=== PATIENT | female | born 1985 | race Caucasian/White ===

== ENCOUNTER 2018-07-10 19:14 | Emergency (ER) | payer MEDICAID ==
--- NOTE | 2018-07-10 20:06 | ED Physician Documentation ---
PD HPI HEADACHE - Stated complaint Stated Complaint: SOOD - Chief complaint Chief Complaint: Heent - History obtained from History obtained from: Patient - History of Present Illness Timing - onset: Today (at 12pm developed bilateral retroorbital headache. Has H/O migraines. No fevers/chills. Feels like her usual migraine but has more neck pain with it. 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 : None, Other HEENT: None Psych: None Musculoskeletal: None Derm: None Other Past Medical History: chronic kidney infections - Past Surgical History Past Surgical History: Yes /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: section, Tubal ligation, Other - Present Medications Home Medications: Ambulatory Orders Medication Instructions Recorded Confirmed FLUoxetine [PROzac] 10 mg PO DAILY 07/19/12 07/25/13 Cyclobenzaprine [Flexeril] 10 mg PO TID 07/25/13 07/25/13 HYDROcod/ACETAM 5/325 [Vicodin 1 - 2 ea PO Q6H PRN #20 tablet 07/25/13 5/325] Promethazine [Phenergan] 25 mg PO Q6H PRN #20 tab 07/25/13 Sumatriptan Succinate [Imitrex] 50 mg PO ONCE PRN #5 tablet 07/25/13 SUMAtriptan [Imitrex] 25 mg PO BID PRN #10 tablet 07/10/18 - Allergies Allergies/Adverse Reactions: Allergies Allergy/AdvReac Type Severity Reaction Status Date / Time Penicillins Allergy Severe Respiratory Verified 07/10/18 19:22 Latex, Natural Rubber Allergy Intermediate Rash Verified 07/10/18 19:22 castor oil [[place] Oil] Allergy Rash Verified 07/10/18 19:22 - Social History Does the pt smoke?: No Smoking Status: Never smoker Does the pt drink ETOH?: No Does the pt have substance abuse?: No Substance Use and Type: Marijuana - Immunizations Immunizations are current?: Yes - POLST Patient has POLST: No PD ED PE NORMAL - Vitals Vital signs reviewed: Yes - General General: Alert and oriented X 3, No acute distress, Other (uncomfortable and photophobic) - HEENT HEENT: PERRL, EOMI, Ears normal - Neck Neck: Supple, no meningeal sign, No bony TTP - Back Back: Other (R CVAT) - Neuro Neuro: Alert and oriented X 3, Normal speech - Psych Psych: Normal mood, Normal affect Results - Vitals Vitals: Vital Signs - 24 hr 07/10/18 07/10/18 19:18 23:12 Temperature 37.2 C 36.2 C L Heart Rate 78 79 Respiratory 14 18 Rate Blood Pressure 121/81 H 105/61 O2 Saturation 100 98 Oxygen O2 Source Room air - Labs Labs: Laboratory Tests 07/10/18 07/10/18 20:58 21:18 Sodium 138 Potassium 3.6 Chloride 101 Carbon Dioxide 28 Anion Gap 9.0 BUN 11 Creatinine 0.6 Estimated GFR (MDRD) 115 Glucose 105 H Calcium 8.9 Urine Color YELLOW Urine Clarity HAZY Urine pH 8.0 H Ur Specific [place] 1.015 Urine Protein TRACE Urine Glucose (UA) NEGATIVE Urine Ketones 40 H Urine Occult Blood NEGATIVE Urine Nitrite NEGATIVE Urine Bilirubin NEGATIVE Urine Urobilinogen 0.2 (NORMAL) Ur Leukocyte Esterase NEGATIVE Urine RBC None Seen Urine WBC 0-3 Ur Squamous Epith Cells MANY Squamous H Urine Bacteria Rare Urine Mucus Moderate Strands Ur Microscopic Review INDICATED Urine Culture Comments NOT INDICATED Urine HCG, Qual NEGATIVE - Rads (name of study) CT KUB Radiology: EMP read contemporaneously (NAD) PD MEDICAL DECISION MAKING - ED course ED course: 33-year-old woman presents with migraine headache but also some urinary complaints. She specifically wanted a CAT scan to evaluate her kidneys, she says she was at an ER at another facility 2 weeks ago and was told she needed this. I discussed the risks of this, but she wants to go ahead with it. There were no acute findings. Her migraine was treated with IV medications with relief. Departure - Departure Disposition: 01 Home, Self Care Clinical Impression: Migraine, Flank pain Condition: Good Record reviewed to determine appropriate education?: Yes Instructions: ED Headache Migraine Prescriptions: SUMAtriptan [Imitrex] 25 mg PO BID PRN #10 tablet PRN Reason: Headache Comments: Your CAT scan is normal. There is no evidence of kidney problem or stone. Call your doctor to arrange a follow-up appointment, make the next available appointment. In the interim, return anytime if worse or if new symptoms develop. Discharge Date/Time: 07/10/18 23:13
[2018-07-10] MEDS ORDERED: ONDANSETRON ODT 4 MG TABLET TL STA (20:11)
[2018-07-10] MEDS ORDERED: SUMAtriptan 6 MG/0.5 ML VIAL SUBQ STA (20:11)
[2018-07-10] MEDS ORDERED: diphenhydrAMINE INJ 50 MG/ML VIAL IVP STA (20:51)
[2018-07-10] MEDS ORDERED: METOCLOPRAMIDE 10 MG/2 ML VIAL IVP STA (20:51)
[2018-07-10] MEDS ORDERED: SODIUM CHLORIDE 0.9% 1,000 ML IV ONE (20:54)
[2018-07-10 21:20] LABS: BILIRUBIN,URINE NEGATIVE (NEGATIVE); GLUCOSE, URINE (UA) NEGATIVE (NEGATIVE); KETONES,URINE (UA) 40 mg/dL (NEGATIVE); LEUKOCYTE ESTERASE, URINE NEGATIVE (NEGATIVE); NITRITE,URINE NEGATIVE (NEGATIVE); OCCULT BLOOD,URINE NEGATIVE (NEGATIVE); PROTEIN,URINE TRACE mg/dL (NEGATIVE); UROBILINOGEN,URINE 0.2 (NORMAL) E.U./dL (NORMAL)
[2018-07-10 21:23] LABS: CLARITY,URINE HAZY (CLEAR); HCG UR QUAL NEGATIVE
[2018-07-10 21:29] LABS: BACTERIA,URINE Rare /HPF (None Seen); MUCUS,URINE Moderate Strands; RBC,URINE None Seen /HPF (0-5); SQUAMOUS EPITHELIAL CELL,UR MANY Squamous (<= Few)
[2018-07-10 21:32] LABS: CALCIUM 8.9 mg/dL (8.5-10.3); CREATININE 0.6 mg/dL (0.4-1.0)
--- NOTE | 2018-07-10 22:37 | CT Report ---
Reason: flank pain Procedure Date: 07/10/2018 Accession Number: [id number] / [id number] Procedure: CT - Abdomen/Pelvis WO CPT Code: FULL RESULT: EXAM: CT ABDOMEN AND PELVIS (CT KUB) EXAM DATE: 07/10/2018 10:14 PM. CLINICAL HISTORY: Flank pain. COMPARISONS: None. TECHNIQUE: Routine axial helical CT imaging was performed through the abdomen and pelvis without IV contrast. Reconstructions: Coronal and sagittal. In accordance with CT protocol optimization, one or more of the following dose reduction techniques were utilized for this exam: automated exposure control, adjustment of mA and/or KV based on patient size, or use of iterative reconstructive technique. FINDINGS: Lung Bases: Unremarkable. Right Kidney/Ureter: No stones, hydronephrosis, or hydroureter. No perinephric fat stranding. Left Kidney/Ureter: No stones, hydronephrosis, or hydroureter. No perinephric fat stranding. Other Solid Organs: Noncontrast images of the solid organs are grossly unremarkable. Gallbladder/Bile Ducts: Unremarkable. Peritoneal Cavity: No free fluid, free air or hiren adenopathy. Bowel is grossly unremarkable. Normal appendix. Pelvic Organs: No bladder stones or wall thickening. Noncontrast images of the visualized pelvic organs are unremarkable. Vasculature: Unremarkable. Other: None. IMPRESSION: No urinary tract stones or obstruction. No evident etiology for patient's flank pain. RADIA
[2018-07-10 23:13] VITALS: BP 105/61
== END 2018-07-10 23:13 | disposition home or self-care (01) ==
LOC: ED 19:14
DX: G43.909 Migraine, unspecified, not intractable, without status migrainosus (principal); R10.9 Unspecified abdominal pain; R35.0 Frequency of micturition
CPT/HCPCS: 36415; 74176; 80048; 81001; 81025; 96372; 96374; 99283; J1200; J2765; Q0162; 81003; 87086

== ENCOUNTER 2018-08-24 13:46 | Emergency (ER) | payer MEDICAID ==
[2018-08-24] MEDS ORDERED: LIDOCAINE 2%-EPI 1:100000 20 ML MDV SUBQ STA (14:38)
--- NOTE | 2018-08-24 14:40 | ED Physician Documentation ---
History of Present Illness - Stated complaint Stated Complaint: LEG SWELLING - Chief complaint Chief Complaint: General - History obtained from History obtained from: Patient - History of Present Illness Timing: How many days ago (4-5) Pain level max: 3 Pain level now: 3 - Additonal information Additional information: 33-year-old female presents to the emergency department with redness and swelling to the left buttock for the past 4 to 5 days. Seen at an urgent care in [place], started on Bactrim. States she has not improved. She states that they did take a wound culture at that time. No fevers. She states that the redness is increasing in size. Nothing makes it better or worse. She is allergic to penicillin. 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: section, Tubal ligation, Other - Present Medications Home Medications: Ambulatory Orders Medication Instructions Recorded Confirmed FLUoxetine [PROzac] 10 mg PO DAILY 07/19/12 07/25/13 Cyclobenzaprine [Flexeril] 10 mg PO TID 07/25/13 07/25/13 HYDROcod/ACETAM 5/325 [Vicodin 1 - 2 ea PO Q6H PRN #20 tablet 07/25/13 5/325] Promethazine [Phenergan] 25 mg PO Q6H PRN #20 tab 07/25/13 Sumatriptan Succinate [Imitrex] 50 mg PO ONCE PRN #5 tablet 07/25/13 SUMAtriptan [Imitrex] 25 mg PO BID PRN #10 tablet 07/10/18 Clindamycin HCl [Clindamycin 300MG 300 mg PO Q6H #40 capsule 08/24/18 CAP] Fluconazole [Diflucan] 150 mg PO ONCE #1 tablet 08/24/18 - Allergies Allergies/Adverse Reactions: Allergies Allergy/AdvReac Type Severity Reaction Status Date / Time Penicillins Allergy Severe Anaphylaxis Verified 08/24/18 14:23 Latex, Natural Rubber Allergy Intermediate Rash Verified 08/24/18 14:23 amoxicillin Allergy Anaphylaxis Verified 08/24/18 14:23 castor oil [[place] Oil] Allergy Rash Verified 08/24/18 14:23 - Social History Does the pt smoke?: No Smoking Status: Never smoker Does the pt drink ETOH?: No Does the pt have substance abuse?: No - Immunizations Immunizations are current?: Yes - POLST Patient has POLST: No PD ED PE NORMAL - Vitals Vital signs reviewed: Yes - General General: Alert and oriented X 3, No acute distress - HEENT HEENT: Moist mucous membranes - Neck Neck: Supple, no meningeal sign - Cardiac Cardiac: RRR - Respiratory Respiratory: No respiratory distress, Clear bilaterally - Derm Derm: Warm and dry - Extremities Extremities: Other (L buttock 6x6cm erythema, small pustule. NVI) - Neuro Neuro: Alert and oriented X 3 - Psych Psych: Normal mood, Normal affect Results - Vitals Vitals: Vital Signs - 24 hr 08/24/18 08/24/18 13:51 15:16 Temperature 36.6 C 36.3 C L Heart Rate 92 76 Respiratory 14 12 Rate Blood Pressure 113/74 118/71 O2 Saturation 100 98 Oxygen O2 Source Room air Procedures - Abscess I&D (location) L buttock Preparation: Confirmed with ultrasound, Lidocaine 2 %, With epi Incision: Needle aspiration Other: Pt tolerated well, Dressing applied, Antibiotic prescribed PD MEDICAL DECISION MAKING - ED course Complexity details: considered differential, d/w patient ED course: 33-year-old female with a small abscess to the buttock but has significant surrounding cellulitis. Will change to clindamycin. Very small abscess on ultrasound, needle aspiration performed. Patient counseled regarding signs and symptoms for which I believe and urgent re-evaluation would be necessary. Patient with good understanding of and agreement to plan and is comfortable going home at this time This document was made in part using voice recognition software. While efforts are made to proofread this document, sound alike and grammatical errors may occur. Departure - Departure Disposition: 01 Home, Self Care Clinical Impression: Abscess Condition: Good Instructions: ED Abscess IandD Follow-Up: your,doctor in 3 days for wound check [Other] Prescriptions: Clindamycin HCl [Clindamycin 300MG CAP] 300 mg PO Q6H #40 capsule Fluconazole [Diflucan] 150 mg PO ONCE #1 tablet Comments: Take all antibiotics until gone. Return if you worsen. You can stop the other antibiotics. Follow-up with your doctor in 2 to 3 days for wound check. Warm water will help this continue to drain as well. Discharge Date/Time: 08/24/18 15:22
[2018-08-24 15:17] VITALS: BP 118/71
== END 2018-08-24 15:22 | disposition home or self-care (01) ==
LOC: ED 13:46
DX: L02.31 Cutaneous abscess of buttock (principal); L03.317 Cellulitis of buttock; Z88.0 Allergy status to penicillin
CPT/HCPCS: 10160; 99283

== ENCOUNTER 2019-08-08 13:56 | Emergency (ER) | payer MEDICAID ==
[2019-08-08] MEDS ORDERED: KETOROLAC 60 MG/2 ML VIAL IM STA (14:42)
[2019-08-08] MEDS ORDERED: CHERRY SYRUP 10 ML UDC PO ONE (14:43)
[2019-08-08] MEDS ORDERED: DEXAMETHASONE 10 MG/ML VIAL PO STA (14:43)
--- NOTE | 2019-08-08 14:45 | ED Physician Documentation ---
History of Present Illness - Stated complaint Stated Complaint: NECK PX/DIZZY - Chief complaint Chief Complaint: Neuro - History obtained from History obtained from: Patient - History of Present Illness Timing: Today - Additonal information Additional information: 34-year-old female got up this morning to go to work found herself to have some lightheadedness and dizziness. On her way to work she suddenly had the onset of pain in the left side of her neck right at the base of her skull and this pain radiated into her jaw and shoulder. She has had similar pains on her other side with the onset of migraine. She does have a headache not not like what she usually has with a migraine. She did get nauseated associated with the pain. She was symptomatic enough she had to call off work. Review of Systems Constitutional: denies: Fever Eyes: denies: Decreased vision Ears: reports: Ear pain, Tinnitus/ringing Nose: denies: Rhinorrhea / runny nose, Congestion Throat: reports: Dental pain / toothache. denies: Sore throat Cardiac: denies: Chest pain / pressure, Palpitations Respiratory: denies: Dyspnea, Cough GI: reports: Nausea. denies: Abdominal Pain, Vomiting : denies: Dysuria, Frequency Skin: denies: Rash Musculoskeletal: reports: Neck pain. 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, Tubal ligation, Other - Present Medications Home Medications: Ambulatory Orders Medication Instructions Recorded Confirmed FLUoxetine [PROzac] 10 mg PO DAILY 07/19/12 07/25/13 Cyclobenzaprine [Flexeril] 10 mg PO TID 07/25/13 07/25/13 HYDROcod/ACETAM 5/325 [Vicodin 1 - 2 ea PO Q6H PRN #20 tablet 07/25/13 5/325] Promethazine [Phenergan] 25 mg PO Q6H PRN #20 tab 07/25/13 Sumatriptan Succinate [Imitrex] 50 mg PO ONCE PRN #5 tablet 07/25/13 SUMAtriptan [Imitrex] 25 mg PO BID PRN #10 tablet 07/10/18 Clindamycin HCl [Clindamycin 300MG 300 mg PO Q6H #40 capsule 08/24/18 CAP] Fluconazole [Diflucan] 150 mg PO ONCE #1 tablet 08/24/18 Cyclobenzaprine [Flexeril] 10 mg PO TID PRN #20 tablet 08/08/19 Hydrocodone/Acetaminophen 1 - 2 each PO Q6H PRN #14 tablet 08/08/19 [Hydrocodon-Acetaminophen 5-325] - Allergies Allergies/Adverse Reactions: Allergies Allergy/AdvReac Type Severity Reaction Status Date / Time Penicillins Allergy Severe Anaphylaxis Verified 08/08/19 14:10 Latex, Natural Rubber Allergy Intermediate Rash Verified 08/08/19 14:10 amoxicillin Allergy Anaphylaxis Verified 08/08/19 14:10 castor oil [[place] Oil] Allergy Rash Verified 08/08/19 14:10 - Social History Does the pt smoke?: No Smoking Status: Never smoker Does the pt drink ETOH?: No Does the pt have substance abuse?: No - Immunizations Immunizations are current?: Yes - POLST Patient has POLST: No PD ED PE NORMAL - Vitals Vital signs reviewed: Yes (Hypertensive) - General General: Alert and oriented X 3, No acute distress, Well developed/nourished - HEENT HEENT: Atraumatic, PERRL, EOMI, Ears normal, Moist mucous membranes, Pharynx benign, Dentition benign - Neck Neck: Supple, no meningeal sign, No bony TTP, Other (There is point tenderness to the trapezius at the insertion to the occiput on the left side. No tenderness over the carotid or vertebral arteries.) - Cardiac Cardiac: RRR, No murmur - Respiratory Respiratory: No respiratory distress, Clear bilaterally - Abdomen Abdomen: Soft, Non tender - Derm Derm: Normal color, Warm and dry, No rash - Extremities Extremities: No deformity, No edema - Neuro Neuro: Alert and oriented X 3, racing secretary 2-12 intact, No motor deficit, No sensory deficit, Normal speech Eye Opening: Spontaneous Motor: Obeys Commands Verbal: Oriented GCS Score: 15 - Psych Psych: Normal mood, Normal affect Results - Vitals Vitals: Vital Signs - 24 hr 08/08/19 08/08/19 14:04 16:38 Temperature 98.6 C H Heart Rate 85 71 Respiratory 14 16 Rate Blood Pressure 133/95 H 129/88 H O2 Saturation 100 100 Oxygen O2 Source Room air - Labs Labs: Laboratory Tests 08/08/19 08/08/19 15:25 15:25 WBC 4.1 L RBC 4.91 Hgb 11.3 L Hct 36.3 L MCV 73.9 L MCH 23.0 L MCHC 31.1 L RDW 15.7 H Plt Count 285 MPV 9.1 Neut # (Auto) 2.2 Lymph # (Auto) 1.5 White # (Auto) 0.4 Eos # (Auto) 0.0 Baso # (Auto) 0.0 Absolute Nucleated RBC 0.00 Nucleated RBC % 0.0 Sodium 137 Potassium 3.3 L Chloride 101 Carbon Dioxide 29 Anion Gap 7.0 BUN 7 Creatinine 0.6 Estimated GFR (MDRD) 114 Glucose 101 H Calcium 8.9 Total Bilirubin 0.5 AST 19 ALT 16 Alkaline Phosphatase 40 L Total Protein 6.9 Albumin 4.0 Globulin 2.9 Albumin/Globulin Ratio 1.4 Lipase 35 - Rads (name of study) cta neck Radiology: Prelim report reviewed (Impression: Negative for dissection. No hemodynamically significant stenosis is detected. A 9 mm rim calcified lesion can be seen involving the left thyroid. If clinically appropriate, please consider a dedicated thyroid ultrasound for further evaluation.), EMP read indepedently, See rad report Procedures - IVC sono (time) 1440 Bedside IVC sono: IVC measures (cm) (0.78), IVC collapsed c insp (cm) (complete), Dehydration (est >2 liter deficit) PD MEDICAL DECISION MAKING - ED course Complexity details: reviewed old records, reviewed results, re-evaluated patient, considered differential, d/w patient ED course: 34-year-old female with left-sided neck pain and lightheadedness and dizziness appears to have specific tenderness to the trapezius at the insertion to the occiput. In addition she is found to be significantly dehydrated on interrogation the inferior vena cava. I did consider vertebral artery dissection in the differential but the patient had alternative diagnoses to account for her symptoms. 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 I have shared my findings with the patient and we have provided IM Toradol and dexamethasone for treatment and the patient will orally hydrate. I went in to discuss all of these findings with the patient and she is concerned about the specific change that she is experienced and a sensation of a grinding noise that she hears from her neck. For further evaluation a CTA of the neck was performed which demonstrated a thyroid nodule. The posterior circulation was intact without evidence of dissection. The occipital condyles appear to articulate with C1 normally. The results are discussed with the patient including the need for further imaging of the thyroid. Her mother has recently had this and she is familiar with the process and will follow up with her primary Departure - Departure Disposition: Home, Self Care Clinical Impression: Dehydration, Occipital neuralgia of left side Condition: Stable Instructions: ED Dehydration, ED Headache Tension Follow-Up: Vivian Hassan ARNP [Primary Care Provider] - Prescriptions: Cyclobenzaprine [Flexeril] 10 mg PO TID PRN #20 tablet PRN Reason: Spasms Hydrocodone/Acetaminophen [Hydrocodon-Acetaminophen 5-325] 1 - 2 each PO Q6H PRN #14 tablet PRN Reason: pain Comments: Today you were found to be significantly dehydrated and the recommendation is to drink an additional 2 quarts from what you were normal as today and drink an additional quart tomorrow as well. Forms: Activity restrictions
[2019-08-08] MEDS ORDERED: SODIUM CHLORIDE 0.9% 1,000 ML IV STA (15:11)
[2019-08-08 15:34] LABS: BASOPHILS % (AUTO) 0.7 %; EOSINOPHILS % (AUTO) 0.7 %; HGB - HEMOGLOBIN 11.3 g/dL (12.0-16.0); LYMPHOCYTES # (AUTO) 1.5 10^3/uL (1.5-3.5); LYMPHOCYTES % (AUTO) 35.3 %; MEAN CORPUSCULAR HGB CONC 31.1 g/dL (32.0-36.0); MEAN CORPUSCULAR VOLUME 73.9 fL (81.0-99.0); MEAN PLATELET VOLUME 9.1 fL (7.9-10.8); MONOCYTES # (AUTO) 0.4 10^3/uL (0.0-1.0); MONOCYTES % (AUTO) 9.5 %; NEUTROPHILS # (AUTO) 2.2 10^3/uL (1.5-6.6); NEUTROPHILS % (AUTO) 53.6 %; PLT - PLATELET COUNT 285 10^3/uL (130-450); RED BLOOD COUNT 4.91 10^6/uL (4.20-5.40); RED CELL DISTRIBUTION WIDTH 15.7 % (12.0-15.0); WHITE BLOOD COUNT 4.1 x10^3/uL (4.8-10.8)
[2019-08-08 15:47] LABS: ALBUMIN/GLOBULIN RATIO 1.4 (1.0-2.2); BILIRUBIN,TOTAL 0.5 mg/dL (0.2-1.0); CALCIUM 8.9 mg/dL (8.5-10.3); CREATININE 0.6 mg/dL (0.4-1.0); TOTAL PROTEIN 6.9 g/dL (6.7-8.2)
[2019-08-08] MEDS ORDERED: IOVERSOL 320 100 ML VIAL IVP ONE ×2 (15:48→16:34)
--- NOTE | 2019-08-08 16:23 | CT Report ---
Reason: L neck pain, dizzy ? disection posterior Procedure Date: 08/08/2019 Accession Number: [id number] / [id number] Procedure: CT - ANGIO NECK W CPT Code: Final Report FULL RESULT: PROCEDURE: ANGIO NECK W INDICATIONS: L neck pain, dizzy ? dissection posterior CONTRAST: IV CONTRAST: Optiray 320 ml: 80 PO CONTRAST: *NO PO CONTRAST TECHNIQUE: After the administration of intravenous contrast, 1.5 mm axial sections acquired from the aortic arch to the [place] of [place]. Coronal 3-D maximum intensity projection (MIP) and/or volume rendering reformats were then performed. For radiation dose reduction, the following was used: automated exposure control, adjustment of mA and/or kV according to patient size. COMPARISON: Correlation is made with head CT 07/19/12. FINDINGS: Image quality: Excellent. Carotid system: The great vessels demonstrate a conventional anatomy as they arise from the aortic arch. The origins of the common carotid arteries appear patent. The common carotid arteries demonstrate normal calibers and courses. The bifurcation regions appear normal bilaterally. The internal carotid arteries demonstrate normal caliber and course. Note is made of a hypoplastic right A1 segment, with a correspondingly robust left A1 segment. This is considered to be a developmental variant of no clinical consequence. Posterior circulation: In this patient with this given history, scrutiny is given to findings of dissection. No findings of vertebral artery dissection are seen. The origins of the vertebral arteries appear patent. The more superior portions of the vertebral arteries demonstrate normal course and caliber. They join to form a normal appearing basilar artery. Soft tissues: Visualized neck soft tissues demonstrate no suspicious abnormalities. There is a rim calcified left thyroid lesion seen that measures up to 9 mm, as on series 5 image 115. Bones: No suspicious bony lesions. Visualized cervical spine appears normally aligned. IMPRESSION: Negative for dissection. No hemodynamically significant stenosis is detected. A 9 mm rim calcified lesion can be seen involving the left thyroid. If clinically appropriate, please consider a dedicated thyroid ultrasound for further evaluation. The estimate of stenosis included in the report of the imaging study was calculated using the NASCET method Reviewed by: Saad Keen MD on 08/08/2019 3:22 PM ELIJAH Approved by: Saad Keen MD on 08/08/2019 3:22 PM AKJERSEY Station ID: [id number]
[2019-08-08 16:38] VITALS: BP 129/88
== END 2019-08-08 17:00 | disposition home or self-care (01) ==
LOC: ED 13:56
DX: E86.0 Dehydration (principal); M54.81 Occipital neuralgia; E04.1 Nontoxic single thyroid nodule
CPT/HCPCS: 36415; 70498; 80053; 83690; 85025; 96360; 96372; 99284; A9270; Q9967

== ENCOUNTER 2019-09-06 20:31 | Emergency (ER) | payer MEDICAID ==
--- NOTE | 2019-09-06 21:55 | ED Physician Documentation ---
PD HPI HEADACHE - Stated complaint Stated Complaint: HEADACHE - Chief complaint Chief Complaint: Neuro - History obtained from History obtained from: Patient - History of Present Illness Timing - onset: How many hours ago (this evening, "few hours ago" (per patient)) Timing - onset during: Rest Timing - duration: Hours Timing - details: Gradual onset Pain level now: 6 Worst headache ever?: No: Worst headache ever? Location: Global Quality: Throbbing Associated symptoms: Nausea. No: Fever, Stiff neck, Vomiting, Weakness, Numbness, Vision changes Improved by: Rest, Dark room Worsened by: Light, Noise Similar symptoms before: Diagnosis (similar to previous migraine headaches) Recently seen: Not recently seen - Additional information Additional information: per patient, "I have a severe migraine". Patient c/o headache x few hours similar to her previous migraine headaches. She notes bilateral frontal sinus congestion as well. 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 She has had improvement in the past with imitrex but she could not find her rx Review of Systems Constitutional: reports: Reviewed and negative Eyes: reports: Photophobia. denies: Loss of vision, Decreased vision Nose: reports: Congestion GI: reports: Nausea. denies: Vomiting Neurologic: reports: Headache. 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: section, Dilation and currettage, Tubal ligation, Other - Present Medications Home Medications: Ambulatory Orders Medication Instructions Recorded Confirmed Cyclobenzaprine [Flexeril] 10 mg PO TID PRN #20 tablet 08/08/19 09/06/19 DULoxetine [Cymbalta] 40 mg PO DAILY 09/06/19 09/06/19 Fluticasone [Flonase] 2 spray NS DAILY PRN 09/06/19 09/06/19 Promethazine [Phenergan] 25 mg PO Q6H PRN #10 tab 09/06/19 Pseudoephedrine [Sudafed] 30 mg PO DAILY PRN 09/06/19 09/06/19 SUMAtriptan [Imitrex] 25 mg PO ONCE PRN #20 tablet 09/06/19 Sumatriptan Succinate [Imitrex] 50 mg PO ONCE PRN 09/06/19 09/06/19 - Allergies Allergies/Adverse Reactions: Allergies Allergy/AdvReac Type Severity Reaction Status Date / Time Penicillins Allergy Severe Anaphylaxis Verified 09/06/19 20:38 Latex, Natural Rubber Allergy Intermediate Rash Verified 09/06/19 20:38 amoxicillin Allergy Anaphylaxis Verified 09/06/19 20:38 castor oil [[place] Oil] Allergy Rash Verified 09/06/19 20:38 - Social History Does the pt smoke?: No Smoking Status: Never smoker Does the pt drink ETOH?: No Does the pt have substance abuse?: No - Immunizations Immunizations are current?: Yes - POLST Patient has POLST: No PD ED PE NORMAL - Vitals Vital signs reviewed: Yes - General General: Alert and oriented X 3, No acute distress, Well developed/nourished, Other (lights off in room for patient comfort per patient's request) - HEENT HEENT: PERRL, EOMI, Moist mucous membranes, Other (mild photophobia) - Neck Neck: Supple, no meningeal sign - Cardiac Cardiac: RRR, No murmur - Respiratory Respiratory: No respiratory distress, Clear bilaterally - Neuro Neuro: Alert and oriented X 3, guard lieutenant 2-12 intact, No motor deficit, No sensory deficit, Normal speech Eye Opening: Spontaneous Motor: Obeys Commands Verbal: Oriented GCS Score: 15 Results - Vitals Vitals: Vital Signs - 24 hr 09/06/19 09/06/19 20:35 22:00 Temperature 36.3 C L 36.4 C L Heart Rate 80 82 Respiratory 18 16 Rate Blood Pressure 129/82 H 138/91 H O2 Saturation 99 99 Oxygen O2 Source Room air PD MEDICAL DECISION MAKING - ED course Complexity details: considered differential, d/w patient ED course: patient says her headache is typical for her previous migraines. She also describes sinus congestion but afebrile and no findings to indicate antibiotics (no facial swelling or erythema). Patient opts for medications and discharge (as opposed to waiting to see if medications are effective); she says imitrex and benadryl have typically worked well for previous migraines. Departure - Departure Disposition: 01 Home, Self Care Clinical Impression: Migraine Condition: Good Instructions: ED Headache Migraine Follow-Up: Vivian Hassan ARNP [Primary Care Provider] - Prescriptions: SUMAtriptan [Imitrex] 25 mg PO ONCE PRN #20 tablet PRN Reason: Migraine Promethazine [Phenergan] 25 mg PO Q6H PRN #10 tab PRN Reason: Nausea / Vomiting Discharge Date/Time: 09/06/19 22:19
[2019-09-06] MEDS ORDERED: SUMAtriptan 6 MG/0.5 ML VIAL SUBQ STA (22:04)
[2019-09-06] MEDS ORDERED: diphenhydrAMINE 25 MG CAPSULE PO STA (22:06)
[2019-09-06] MEDS ORDERED: PROMETHAZINE 25 MG TABLET PO STA (22:06)
[2019-09-06 22:19] VITALS: BP 138/91
== END 2019-09-06 22:19 | disposition home or self-care (01) ==
LOC: ED 20:31
DX: G43.909 Migraine, unspecified, not intractable, without status migrainosus (principal)
CPT/HCPCS: 96372; 99283; 99284; A9270; Q0169

== ENCOUNTER 2019-12-06 17:20 | Outpatient (CLI) | payer MEDICAID | END 2019-12-06 23:59 | disposition home or self-care (01) | LOC: LAB.R 17:20 | PROVIDERS: ATTEND Physician Assistant Medical | DX: R05 Cough (principal); Z20.828 Contact with and (suspected) exposure to other viral communicable diseases ==

== ENCOUNTER 2020-10-15 14:14 | Emergency (ER) | payer MEDICAID ==
--- NOTE | 2020-10-15 15:50 | ED Physician Documentation ---
History of Present Illness - Stated complaint Stated Complaint: HEADACH,FATIGUE - Chief complaint Chief Complaint: General - History obtained from History obtained from: Patient - Additonal information Additional information: Patient comes emergency department chief complaint of "I need a Covid test". The patient states that her tested positive several days ago, though he is also asymptomatic, well preparing to go to detox. He she states that she has not had any symptoms except for headache, though she has been very stressed out about a variety of things and thinks that her headache and accompanying nausea may be due to that. Patient denies any shortness of breath or cough. No fevers. She states she came to the emergency department for her test because she did not know where else to go. No other complaints this time. Review of Systems Ten Systems: 10 systems reviewed and negative Constitutional: reports: Reviewed and negative Eyes: reports: Reviewed and negative Ears: reports: Reviewed and negative Nose: reports: Reviewed and negative Throat: reports: Reviewed and negative Cardiac: reports: Reviewed and negative Respiratory: reports: Reviewed and negative GI: reports: Reviewed and negative : reports: Reviewed and negative Skin: reports: Reviewed and negative Musculoskeletal: reports: Reviewed and negative Neurologic: reports: Reviewed and negative Psychiatric: reports: Reviewed and negative Endocrine: reports: Reviewed and negative Immunocompromised: reports: Reviewed and negative PD PAST MEDICAL HISTORY - Past Medical History Cardiovascular: None Respiratory: None Neuro: Migraines Endocrine/Autoimmune: None GI: None 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: None : None, Other HEENT: None Psych: Depression, Anxiety Musculoskeletal: None Derm: Other - Past Surgical History Past Surgical History: Yes /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: section, Dilation and currettage, Tubal ligation, Other - Present Medications Home Medications: Ambulatory Orders Medication Instructions Recorded Confirmed Cyclobenzaprine [Flexeril] 10 mg PO TID PRN #20 tablet 08/08/19 09/06/19 DULoxetine [Cymbalta] 40 mg PO DAILY 09/06/19 09/06/19 Fluticasone [Flonase] 2 spray NS DAILY PRN 09/06/19 09/06/19 Promethazine [Phenergan] 25 mg PO Q6H PRN #10 tab 09/06/19 Pseudoephedrine [Sudafed] 30 mg PO DAILY PRN 09/06/19 09/06/19 SUMAtriptan [Imitrex] 25 mg PO ONCE PRN #20 tablet 09/06/19 Sumatriptan Succinate [Imitrex] 50 mg PO ONCE PRN 09/06/19 09/06/19 - Allergies Allergies/Adverse Reactions: Allergies Allergy/AdvReac Type Severity Reaction Status Date / Time Penicillins Allergy Severe Anaphylaxis Verified 10/15/20 14:48 Latex, Natural Rubber Allergy Intermediate Rash Verified 10/15/20 14:48 amoxicillin Allergy Anaphylaxis Verified 10/15/20 14:48 castor oil [[place] Oil] Allergy Rash Verified 10/15/20 14:48 - Social History Does the pt smoke?: No Smoking Status: Never smoker Does the pt drink ETOH?: No Does the pt have substance abuse?: No - Immunizations Immunizations are current?: Yes - POLST Patient has POLST: No PD ED PE NORMAL - Vitals Vital signs reviewed: Yes - General General: Alert and oriented X 3, No acute distress - HEENT HEENT: Atraumatic, PERRL, EOMI, Moist mucous membranes - Neck Neck: Supple, no meningeal sign - Cardiac Cardiac: RRR, No murmur - Respiratory Respiratory: No respiratory distress, Clear bilaterally - Abdomen Abdomen: Soft, Non tender, Non distended - Derm Derm: Normal color, Warm and dry, No rash - Extremities Extremities: No deformity, No edema - Neuro Neuro: Alert and oriented X 3, carbon rod inserter 2-12 intact, Normal speech - Psych Psych: Normal mood, Normal affect Results - Vitals Vitals: Vital Signs - 24 hr 10/15/20 14:48 Temperature 37.4 C Heart Rate 70 Respiratory 16 Rate Blood Pressure 130/88 H O2 Saturation 99 Oxygen O2 Source Room air PD MEDICAL DECISION MAKING - ED course Complexity details: considered differential, d/w patient ED course: This patient was asymptomatic and I have advised her that she may have any other contacts go to the Covid testing station as opposed to the emergency department. A Covid reference test has been sent and patient is advised that she will be notified of positive result and that she may access our online system to watch for her results, should to be negative. We have discussed the usual indications for return. Departure - Departure Disposition: 01 Home, Self Care Clinical Impression: Exposure to COVID-19 virus Condition: Stable Instructions: COVID-19 [facility] Comments: You have a Covid test pending. You need to self quarantine until the results is done and negative. The results should be done in 24 to 48 hours. We will call with a positive result, but the fastest way to get a negative result for confirmation is to go to the hospital website at [email or web address], click on the "my [email or web address]" tab and sign up for the patient portal. If any friends or family get sick and would like to have a Covid test done, but do not have signs or symptoms that would necessitate being hospitalized, we encouraged testing through our coronavirus swabbing station. Call [phone] to schedule an appointment.
[2020-10-15 15:59] VITALS: BP 129/84
== END 2020-10-15 15:59 | disposition home or self-care (01) ==
LOC: ED 14:14
DX: Z20.822 Contact with and (suspected) exposure to COVID-19 (principal)
CPT/HCPCS: 99281; 99283

== ENCOUNTER 2022-08-23 12:42 | Outpatient (CLI) | payer MEDICAID | END 2022-08-23 23:59 | disposition EMS.NT | LOC: EMS 12:42 | DX: Z04.1 Encounter for examination and observation following transport accident (principal) ==